=== PATIENT | female | born 1960 | race Caucasian/White ===

== ENCOUNTER 2021-09-13 09:28 | Emergency (ER) | payer MEDICAID, SELFPAY ==
[2021-09-13 09:29] VITALS: BP 152/86; PULSE 103; RESP 18; TEMP 36.6; O2SAT 97; BMI 38.7
--- NOTE | 2021-09-13 09:55 | EX.ED.UPPERE ---
HPI History of Present Illness Chief Complaint: Upper Extremity Injury Informant: patient Narrative Narrative: Patient present secondary to increasing right wrist pain. Patient had a syncopal episode and fall in early August. She had surgery for a right wrist fracture by Dr. Castañeda in [place]. She was seen in his office 1 week ago and had splint replaced. Patient states that they are currently staying at the homeless assisted here in [facility]. She noted increased swelling and pain over the last 2 days. She has been taking Tylenol during the day but states it makes her sleepy. She has a bottle of Percocet with her. She is a half a tab left in the initial prescription was for 20 tabs filled on August 19. [facility] Medical History Diabetes High cholesterol Hypertension Allergy/AdvReac Type Severity Reaction Status Date / Time No Known Allergies Allergy Verified 09/13/21 09:31 Social History Smoking Status: Unknown if ever smoked ROS ROS ED Constitutional Constitutional ED: Denies chills or fever(s) Eyes Eyes: Denies change in vision ENT ENT ED: Denies sore throat Cardiovascular Cardiovascular: Denies chest pain Respiratory/Chest Respiratory/Chest: Denies cough or dyspnea Gastrointestinal Gastrointestinal: Denies abdominal pain, diarrhea, nausea or vomiting Genitourinary Genitourinary ED: Denies dysuria Musculoskeletal Musculoskeletal: Reports other Details: Right wrist pain. ; Denies back pain Integumentary Denies rash Neurologic Neurologic: Denies headache(s) or weakness Allergic/Immunologic Allergic/Immunologic ED: Denies urticaria EXAM Physical Exam Const Vital Signs: 09/13/21 09:29 Temperature 97.9 F Temperature Source Temporal Pulse Rate 103 H Respiratory Rate 18 Blood Pressure 152/86 H Blood Pressure Mean 108 Pulse Ox 97 Oxygen Delivery Method Room Air Positive well nourished and well developed General Appearance ED: well developed Neck supple Chest Wall inspection of chest normal and palpation of chest normal Resp normal respiratory effort and clear to auscultation bilaterally Cardio regular rate and regular rhythm GI non-tender Palpation: soft Extremity Extremity Narrative: Splint removed in the right upper extremity. Healing surgical wound noted on the volar surface of the right wrist. No sign of acute infection. Good cap refill and sensation distally. Neuro oriented x3 Sensorium / Orientation: alert Psych mental status grossly normal MDM MDM MDM Narrative Medical decision making narrative: Splint is removed. Right wrist x-rays obtained. Radiography Diagnostic Testing: Radiology Impression Wrist X-Ray 09/13/21 10:20 IMPRESSION: Status post open reduction internal fixation of the distal radial metaphysis. There is good alignment. Soft tissue swelling. Electronically Signed: Antoni Cordova MD at 10:35 EDT , Service support , Treatment and Re-Evaluation Comments:: Test results discussed with the patient. We discussed keeping her arm elevated to prevent swelling. Volar splint was replaced here with Ortho-Glass. She has an appointment with her orthopedic surgeon on the . Discharge Plan Triage Chief Complaint: Upper Extremity Injury ED Provider: Cary Aquino Dx/Rx/DC Orders Clinical Impression: Fracture of right wrist Instructions: ED Splint Care, Fiberglass Primary Care Provider: Rocco Inman Referrals: Rocco Inman MD [Primary Care Provider] - Activity Restrictions/Additional Instructions: Follow-up with your orthopedic surgeon next week as scheduled. Disposition Disposition: Home, Self Care
--- NOTE | 2021-09-13 10:20 | RAD_ITS ---
STUDY: X-RAY - RIGHT WRIST REASON FOR EXAM: Female, 60 years old. Pain TECHNIQUE: 3 view(s) of the wrist were obtained. COMPARISON: None. FINDINGS: The patient is status post open reduction and internal fixation of the distal radial fracture with screw and plate fixation device. The fracture line is visible. There is good alignment. Normal radiocarpal articulation. Normal distal radioulnar articulation. Normal carpal bones. Normal carpal articulations. Normal carpometacarpal articulation of the thumb. Normal second through fifth carpometacarpal articulations. Normal visualized metacarpal bones. Soft tissue swelling. RAD/Wrist min 3 Views IMPRESSION: Status post open reduction internal fixation of the distal radial metaphysis. There is good alignment. Soft tissue swelling. Electronically Signed: Antoni Cordova MD at 10:35 EDT , Service support ,
--- NOTE | 2021-09-13 11:15 | CM.ED ---
SOCIAL WORK Referral Source: Dr. Aquino Reason for Consult: Resources Patient staying at the [facility] with son. Dr. Aquino requested additional community resources be provided to patient. Met with patient and son in room. Introduced role and reason for referral. Patient discussed current stressors and issues regarding housing and limited money. Active listening and emotional support provided. Patient given Playroom Card. All questions answered. Plan: Return to [facility], resources provided. Long Arevalo MSW, EXTENSION COURSE COORDINATOR
== END 2021-09-13 11:41 | disposition home or self-care (01) ==
PROVIDERS: Emergency Provider Emergency Medicine; PCP Internal Medicine
DX: S62.101A Fracture of unspecified carpal bone, right wrist, initial encounter for closed fracture (principal); X58.XXXA Exposure to other specified factors, initial encounter; Z59.01 Sheltered homelessness
CPT/HCPCS: 73110; 99282

== ENCOUNTER 2021-09-22 08:21 | Emergency (ER) | payer MEDICAID, SELFPAY ==
[2021-09-22 08:22] VITALS: BP 159/65; PULSE 107; RESP 24; TEMP 35.7; O2SAT 95; BMI 36.3
--- NOTE | 2021-09-22 08:38 | EDS_ITS ---
HPI History of Present Illness Chief Complaint: Cough Informant: patient Narrative Narrative: 60-year-old female states for the past 3 days she has had a productive cough, runny nose, epistaxis, dizziness, and overall feeling poorly. She has been on doxycycline for her right wrist injury. She had fallen and broken the wrist and had surgery in [place]. The splint was removed a few days ago and she has been using an Tejas wrap but the Tejas wrap got wet so she n eeds a new one. [facility] Medical History (Updated 09/22/21 @ 09:[address] Rober Du DO) Anxiety Diabetes High cholesterol Hypertension Home Medications atorvastatin 20 mg PO DAILY 09/22/21 [History Last Taken Unknown] citalopram [Celexa] 20 mg PO DAILY 09/22/21 [History Last Taken Unknown] doxycycline hyclate 100 mg PO BID 09/22/21 [History Last Taken Unknown] insulin aspart U-100 [Novolog Flexpen U-100 Insulin] 14 unit SUBCUT TID 09/22/21 [History Last Taken Unknown] insulin glargine [Lantus Solostar U-100 Insulin] 36 unit SUBCUT QPM 09/22/21 [History Last Taken Unknown] lisinopril 5 mg PO DAILY 09/22/21 [History Last Taken Unknown] Allergy/AdvReac Type Severity Reaction Status Date / Time No Known Allergies Allergy Verified 09/22/21 08:22 Social History (Updated 09/22/21 @ 08:[address] Rober Du DO) Smoking Status: Never smoker substance use type: does not use ROS ROS ED Constitutional Constitutional ED: Denies chills or weight loss Eyes Eyes: Denies change in vision or diplopia ENT ENT ED: Reports rhinorrhea, sore throat and other Details: Epistaxis ; Denies ear pain Cardiovascular Cardiovascular: Denies chest pain, orthopnea, palpitations or racing heartbeat Respiratory/Chest Respiratory/Chest: Reports cough and sputum; Denies dyspnea or orthopnea Gastrointestinal Gastrointestinal: Reports nausea; Denies abdominal pain, diarrhea or vomiting Genitourinary Genitourinary ED: Denies dysuria, hematuria or urinary frequency Musculoskeletal Musculoskeletal: Reports myalgias; Denies arthralgias Integumentary Denies abscess or rash Neurologic Neurologic: Denies headache(s) or weakness Psychiatric Psychiatric: Denies anxiety, depression, suicidal ideation or suicidal thoughts Endocrine Endocrinology: Denies polydipsia, polyphagia or polyuria Allergic/Immunologic Allergic/Immunologic ED: Denies mouth swelling, tongue swelling or urticaria EXAM Physical Exam Const Vital Signs: 09/22/21 08:22 09/22/21 08:48 Temperature 96.2 F L 96.2 F L Temperature Source Temporal Temporal Pulse Rate 107 H 107 H Respiratory Rate 24 H 24 H Respiratory Effort Normal Non-Labored Respiratory Depth Normal Respiratory Pattern Normal Blood Pressure 159/65 H 159/65 H Blood Pressure Mean 96 96 Pulse Ox 95 95 Oxygen Delivery Method Room Air Room Air Positive well nourished and well developed General Appearance ED: well developed HEENT Reports normocephalic, head/scalp atraumatic, TM's clear and moist mucous membranes HEENT Narrative: Mild turbinate edema with rhinorrhea oral pharyngeal exam is normal Tympanic Membrane ED: Yes TM's clear Eyes PERRL and EOMs intact bilaterally Neck no lymphadenopathy, supple and no JVD Resp normal respiratory effort and clear to auscultation bilaterally Cardio regular rate, regular rhythm and no murmurs GI normal to inspection, nondistended, normoactive bowel sounds and non-tender Palpation: soft Back/Spine no CVA tenderness and normal ROM Extremity normal to inspection General Extremety ED: Negative for edema General Extremity: Negative for edema Neuro oriented x3 and CN's II-XII intact bilaterally Sensorium / Orientation: alert Motor Exam: strength 5/5 throughout Psych Psych Narrative: No suicidal homicidal ideation Mood & Affect: depressed and tearful Skin no rashes or lesions noted and no wounds MDM MDM MDM Narrative Medical decision making narrative: Covid and influenza testing was negative. My interpretation of the chest x-ray is no acute process. At this point I feel this is most likely a viral URI. She is already on doxycycline which would be pretty good for bacterial sinusitis therefore it is most likely viral. Patient will have her wrist wrapped. Patient feels that she would benefit from an inpatient stay. However, I do not think at this time her viral URI is in need of hospitalization. Radiography Diagnostic Testing: Clinical Impression(s) from Imaging Studies Chest X-Ray 09/22/21 08:38 IMPRESSION: Normal x-ray examination of the chest. Electronically Signed: Samy Schulz MD at 9:19 EST Tel , Service support , Discharge Plan Triage Chief Complaint: Cough ED Provider: Rober Du Dx/Rx/DC Orders Clinical Impression: Viral URI with cough Instructions: ED URI, Viral, No Abx (Adult) Prescriptions: No Action doxycycline hyclate 100 mg capsule 100 mg PO BID RF: 0 atorvastatin 20 mg Tablet 20 mg PO DAILY RF: 0 citalopram [Celexa] 20 mg Tablet 20 mg PO DAILY RF: 0 lisinopril 5 mg Tablet 5 mg PO DAILY RF: 0 insulin aspart U-100 [Novolog Flexpen U-100 Insulin] 100 unit/mL (3 mL) Ins ulin Pen 14 unit SUBCUT TID RF: 0 Lantus Solostar U-100 Insulin 100 unit/mL (3 mL) Insulin Pen 36 unit SUBCUT QPM RF: 0 Primary Care Provider: Rocco Inman Referrals: Rocco Inman MD [Primary Care Provider] - As Needed
--- NOTE | 2021-09-22 08:38 | RAD_ITS ---
STUDY: X-RAY CHEST REASON FOR EXAM: Female, 60 years old. cough TECHNIQUE: Single AP portable view of the chest. COMPARISON: None. FINDINGS: The lungs are clear and expanded. There is no demonstrated pleural abnormality. Normal size heart. Normal mediastinum and corrina. Normal visualized pulmonary arteries. Normal visualized aortic arch and descending thoracic aorta. Normal visualized thoracic spine. Normal visualized ribs, clavicles, and shoulders. There is no demonstrated abnormality of the visualized soft tissue structures of the upper abdomen. RAD/Chest 1 View (Portable) IMPRESSION: Normal x-ray examination of the chest. Electronically Signed: Samy Schulz MD at 9:19 EST Tel , Service support ,
[2021-09-22 08:48] VITALS: BP 159/65; PULSE 107; RESP 24; TEMP 35.7; O2SAT 95
[2021-09-22 09:54] VITALS: PULSE 100; RESP 20; O2SAT 94
== END 2021-09-22 09:59 | disposition home or self-care (01) ==
PROVIDERS: Emergency Provider Emergency Medicine; PCP Internal Medicine
DX: J06.9 Acute upper respiratory infection, unspecified (principal); E11.9 Type 2 diabetes mellitus without complications; E78.00 Pure hypercholesterolemia, unspecified; F41.9 Anxiety disorder, unspecified; I10 Essential (primary) hypertension; Z79.4 Long term (current) use of insulin; Z79.899 Other long term (current) drug therapy
CPT/HCPCS: 71045; 87426; 87804; 99282